=== PATIENT | female | born 1995 | race Caucasian/White ===

== ENCOUNTER 2016-10-15 01:25 | Emergency (ER) | payer SELFPAY ==
[~2016-10-15 01:25] MED LIST: NITR100C62 PO
[2016-10-15 01:30] VITALS: BP 161/83
[2016-10-15] MEDS ORDERED: FLUC150T PO (02:04)
[2016-10-15] MEDS ORDERED: AMOX500C PO (02:04)
[2016-10-15] MEDS ORDERED: IBUP-1007 PO (02:04)
--- NOTE | 2016-10-15 02:05 | PHYS DOC ---
Past Medical History Past Medical History: Other Additional Past Medical Histor: bIPOLAR AND IBS Past Surgical History: Tonsillectomy Alcohol Use: None Drug Use: None Adult General Chief Complaint Chief Complaint: EARACHE/EAR PAIN HPI HPI Patient is a 21 year old female complaining of right ear pain 2 days. No fevers shakes chills nausea vomiting or diarrhea. Physical exam reveals right TM erythematous with bulging, fluid behind TM. No drainage. External canal normal. No lymphadenopathy. No nuchal rigidity. No evidence of meningitis. Pharynx clear. Assessment and plan 21-year-old female with right otitis media. Patient will be given a prescription for amoxicillin and Diflucan per her request. Patient will be given one Lortab in the ED. Review of Systems Review of Systems Constitutional: Denies fever or chills [] Eyes: Denies change in visual acuity, redness, or eye pain [] All other review systems are negative except as documented in the history of present illness portion. Allergies Allergies Allergies Coded Allergies Type Severity Reaction Last Updated Verified doxycycline Allergy Intermediate 04/20/16 Yes Physical Exam Physical Exam Constitutional: Well developed, well nourished, no acute distress, non-toxic appearance. [] HENT: Normocephalic, atraumatic, bilateral external ears normal, oropharynx moist, no oral exudates, nose normal. [] Eyes: PERRLA, EOMI, conjunctiva normal, no discharge. [] Neck: Normal range of motion, no tenderness, supple, no stridor. [] Cardiovascular:Heart rate regular rhythm, no murmur [] Lungs & Thorax: Bilateral breath sounds clear to auscultation [] Abdomen: Bowel sounds normal, soft, no tenderness, no masses, no pulsatile masses. [] Skin: Warm, dry, no erythema, no rash. [] Back: No tenderness, no CVA tenderness. [] Extremities: No tenderness, no cyanosis, no clubbing, ROM intact, no edema. [] Neurologic: Alert and oriented X 3, normal motor function, normal sensory function, no focal deficits noted. [] Psychologic: Affect normal, judgement normal, mood normal. [] Current Patient Data Vital Signs Vital Signs Date Time Temp Pulse Resp B/P (MAP) Pulse Ox O2 Delivery O2 Flow Rate FiO2 10/15/16 01:30 98.5 105 18 98 Room Air 98.5 EKG EKG [] Radiology/Procedures Radiology/Procedures [] Course & Med Decision Making Course & Med Decision Making Pertinent Labs and Imaging studies reviewed. (See chart for details) [] Vernon Disclaimer Dragon Disclaimer This electronic medical record was generated, in whole or in part, using a voice recognition dictation system. Departure Departure Impression: Primary Impression: Otitis media Disposition: HOME, SELF-CARE Condition: GUARDED Referrals: NO PCP (PCP) Patient Instructions: Otitis Media with Effusion Scripts Fluconazole (DIFLUCAN) 150 Mg Tablet 1 TAB PO ONCE, #1 TAB 1 Refill Prov: ROBERT HANSEN MD 10/15/16 Ibuprofen (IBUPROFEN) 600 Mg Tablet 600 MG PO PRN Q6HRS Y for PAIN, #20 TAB Prov: ROBERT HANSEN MD 10/15/16 Amoxicillin (AMOXICILLIN) 500 Mg Capsule 1 CAP PO TID, #30 CAP Prov: ROBERT HANSEN MD 10/15/16 ROBERT HANSEN MD Oct 15, 2016 02:05
[2016-10-15] MEDS ORDERED: HYDROcodone/APAP 5/325MG 1 TAB TABLET PO ONE (02:30)
[2016-10-15] MEDS ORDERED: AMOXICILLIN 250 MG CAPSULE. PO ONE (02:30)
== END 2016-10-15 02:20 | disposition home or self-care (01) ==
LOC: ER 01:25
DX: H66.91 Otitis media, unspecified, right ear (principal); K58.9 Irritable bowel syndrome, unspecified; F31.9 Bipolar disorder, unspecified; Z88.1 Allergy status to other antibiotic agents
CPT/HCPCS: 99283

== ENCOUNTER 2017-06-23 19:44 | Emergency (ER) | payer BC ==
[2017-06-23] MEDS ORDERED: RABIES IMMUNE GLOBULIN PF 300 UNIT/2 ML VIAL. VAX IM (21:00)
[2017-06-23] MEDS: DIPHTH,PERTUSS(ACELL),TET TOX 0.5 ML DISP.SYRIN. VAX IM (21:48)
[2017-06-23] MEDS: RABIES VIRUS VACC PF 2.5 UNIT / 1 ML VIAL. VAX IM (21:51)
[2017-06-23] MEDS: RABIES IMMUNE GLOBULIN PF 150 UNIT/ML 10ML VIAL. VAX IM (21:53)
== END 2017-06-23 22:23 | disposition home or self-care (01) ==
LOC: ER 19:44
DX: S61.452A Open bite of left hand, initial encounter (principal); K58.9 Irritable bowel syndrome, unspecified; F31.9 Bipolar disorder, unspecified; Z88.1 Allergy status to other antibiotic agents; W54.0XXA Bitten by dog, initial encounter; Y93.89 Activity, other specified; Y99.8 Other external cause status; Y92.89 Other specified places as the place of occurrence of the external cause
CPT/HCPCS: 90375; 90471; 90472; 90675; 90715; 96372; 99284-25

== ENCOUNTER 2018-04-20 16:38 | Emergency (ER) | payer SELFPAY ==
[~2018-04-20] VITALS: Ht 152.4 cm; Wt 127.0 kg
[~2018-04-20 16:38] MED LIST changes: +AMOX1TAB61 PO; +AMOX500C PO; +FLUC150T PO; +IBUP-1007 PO
[2018-04-20 16:43] VITALS: BP 156/82
--- NOTE | 2018-04-20 17:05 | PHYS DOC ---
Past Medical History Past Medical History: Anxiety, Bipolar, Depression, Hypothyroid, IBS, Other Additional Past Medical Histor: ADHD Past Surgical History: Tonsillectomy, Other Additional Past Surgical Histo: TUBES EARS Additional Information: 0.5 PPD Alcohol Use: Rarely Drug Use: Marijuana Adult General Chief Complaint Chief Complaint: ABSCESS HPI HPI Patient is a 22 year old female with history of anxiety, bipolar, IBS, hypothyroidism, who presents today complaining of an abscess on the left labia for a couple days. Patient states she has history of multiple abscesses around the labia and pubic region. Patient denies any fever or drainage from the area. Review of Systems Review of Systems Constitutional: Denies fever or chills [] Musculoskeletal: Denies back pain or joint pain [] Integument: Left labia abscess Neurologic: Denies headache, focal weakness or sensory changes [] All other systems were reviewed and found to be within normal limits, except as documented in this note. Current Medications Current Medications Current Medications Medications (Trade) Dose Ordered Sig/Arcenio Start Time Stop Time Status Last Admin Dose Admin Acetaminophen/ Hydrocodone Bitart (Lortab 5/325) 1 tab 1X ONCE 04/20/18 17:15 04/20/18 17:16 DC 04/20/18 17:16 1 TAB Lidocaine HCl (Lidocaine 1% 20ml Vial) 20 ml 1X ONCE 04/20/18 17:15 04/20/18 17:16 DC 04/20/18 17:16 20 ML Trimethoprim/ Sulfamethoxazole (Bactrim Ds) 1 tab 1X ONCE 04/20/18 17:15 04/20/18 17:16 DC 04/20/18 17:16 1 TAB Allergies Allergies Allergies Coded Allergies Type Severity Reaction Last Updated Verified doxycycline Allergy Intermediate 07/07/17 Yes Physical Exam Physical Exam Constitutional: Well developed, well nourished, no acute distress, non-toxic appearance. [] Skin: Warm, dry, pubic region with multiple scars consistent with previous abscesses. An abscess is noted on the left labia majora, abscesses moderate in size, it's very firm and fluctuant, there is erythema surrounding this area, the area is warm and very tender to touch. Back: No tenderness, no CVA tenderness. [] Extremities: No tenderness, no cyanosis, no clubbing, ROM intact, no edema. [] Neurologic: Alert and oriented X 3, normal motor function, normal sensory function, no focal deficits noted. [] Psychologic: Affect normal, judgement normal, mood normal. [] Current Patient Data Vital Signs Vital Signs Date Time Temp Pulse Resp B/P (MAP) Pulse Ox O2 Delivery O2 Flow Rate FiO2 04/20/18 17:16 19 98 Room Air 04/20/18 16:43 97.7 131 156/82 (106) 97.7 Lab Values Laboratory Tests Test 04/20/18 16:54 POC Urine HCG, Qualitative Hcg negative (Negative) EKG EKG [] Radiology/Procedures Radiology/Procedures Indication: abscess left labia majora Procedure: The patient was positioned appropriately. Local anesthesia was 1% lidocaine. An incision was then made over the apex of the lesion with an 11 blade and moderate amount of yellow purulent bloody material was expressed. The drainage cavity was irrigated and packed with sterile gauze. The patients tetanus status updated as needed. The patient tolerated the procedure well. Complications: none.[] Course & Med Decision Making Course & Med Decision Making Pertinent Labs and Imaging studies reviewed. (See chart for details) This is a 22-year-old female patient presented to the ED today with an abscess on the left labia. Has history of abscesses to the pubic/vaginal region. Tetanus up-to-date. Abscess was drained by me as noted in procedures and wound was packed. Discharged on Bactrim. Instructed to return to the ED in 2 days for wound check. Dragon Disclaimer Dragon Disclaimer This electronic medical record was generated, in whole or in part, using a voice recognition dictation system. Departure Departure Impression: Primary Impression: Abscess of vagina Additional Impression: Cellulitis of tunica vaginalis Disposition: 01 HOME, SELF-CARE Condition: STABLE Referrals: UNKNOWN PCP NAME (PCP) Follow-up with your doctor in 2 days or the emergency room in 2 days for wound check and packing removal Patient Instructions: Abscess, Care After, Cellulitis, [id number] Additional Instructions: You have an abscess of the left labia that was drained and packed in the emergency room. Please return in 2 days for wound check and packing removal. Apply warm compresses to the region. You can shower. Take the prescribed antibiotics until completed. Follow-up with your own doctor in one week. Scripts Hydrocodone/Apap 5-325 (NORCO 5-325 TABLET) 1 Each Tablet 1 TAB PO Q6HRS, #10 TAB Prov: COSME FLOWERS APRN 04/20/18 Sulfamethoxazole/Trimethoprim (BACTRIM DS TABLET) 1 Each Tablet 1 TAB PO BID, #20 TAB Prov: COSME FLOWERS APRN 04/20/18 Problem Qualifiers COSME FLOWERS APRN Apr 20, 2018 17:05
[2018-04-20] MEDS ORDERED: SMZ/TMP 800/160MG TABLET. PO ONE (17:15)
[2018-04-20] MEDS ORDERED: HYDROcodone/APAP 5/325MG 1 TAB TABLET PO ONE (17:15)
[2018-04-20] MEDS ORDERED: LIDOCAINE 1% Multi-Dose 20 ML VIAL. INJ ONE (17:15)
[2018-04-20] MEDS ORDERED: HYDR-3164 PO (17:55)
[2018-04-20] MEDS ORDERED: SULF1TAB24 PO (17:55)
== END 2018-04-20 18:01 | disposition home or self-care (01) ==
LOC: ER 16:38
DX: N76.4 Abscess of vulva (principal); E03.9 Hypothyroidism, unspecified; K58.9 Irritable bowel syndrome, unspecified; F17.200 Nicotine dependence, unspecified, uncomplicated; Z88.1 Allergy status to other antibiotic agents
CPT/HCPCS: 10060; 56405; 81025; 99283; 99284